=== PATIENT | male | born 1945 | race Caucasian/White ===

== ENCOUNTER 2017-02-10 09:00 | Outpatient (CLI) | payer MEDICARE, OTHER ==
[2015-04-22 11:15] VITALS: BP 142/77
[2017-02-10 09:37] LABS: BASOPHILS % 0.4 (0.0-1.5); EOSINOPHILS % 2.5 % (0.0-6.8); MEAN CORPUSCULAR HEMOGLOBIN 28.3 pg (28.0-34.0); MEAN CORPUSCULAR VOLUME 90.2 fl (80.0-100.0); MONOCYTES % 3.9 % (0.0-11.0); NEUTROPHILS # 7.6 # k/uL (1.4-7.7)
[2017-02-10 10:15] LABS: eGFR (African) > 60; eGFR (Non-African) 58
== END 2017-02-10 09:02 ==
LOC: LAB 09:00
PROVIDERS: ATTEND Family Medicine
DX: E11.9 Type 2 diabetes mellitus without complications (principal); D64.9 Anemia, unspecified; R19.5 Other fecal abnormalities; Z12.5 Encounter for screening for malignant neoplasm of prostate
CPT/HCPCS: 36415; 80053; 80061; 83036; 84443; 85025; G0103

== ENCOUNTER 2018-03-22 07:57 | Outpatient (CLI) | payer MEDICARE, OTHER ==
[2015-04-22 11:15] VITALS: BP 142/77
[2018-03-22 08:42] LABS: MEAN CORPUSCULAR HEMOGLOBIN 27.7 pg (28.0-34.0)
[2018-03-22 08:48] LABS: eGFR (Non-African) > 60
== END 2018-03-22 08:00 ==
LOC: RT 07:57
PROVIDERS: ATTEND Family Medicine
DX: I49.9 Cardiac arrhythmia, unspecified (principal); E03.9 Hypothyroidism, unspecified; E11.9 Type 2 diabetes mellitus without complications
CPT/HCPCS: 36415; 80053; 80061; 82043; 83036; 84443; 85027

== ENCOUNTER 2018-07-25 09:03 | Outpatient (CLI) | payer MEDICARE, OTHER ==
[2015-04-22 11:15] VITALS: BP 142/77
[2018-07-25 09:50] LABS: eGFR (Non-African) > 60
== END 2018-07-25 09:05 ==
LOC: LAB 09:03
PROVIDERS: ATTEND Family Medicine
DX: R60.9 Edema, unspecified (principal); E11.9 Type 2 diabetes mellitus without complications; Z79.4 Long term (current) use of insulin
CPT/HCPCS: 36415; 80048; 83036

== ENCOUNTER 2019-02-22 09:10 | Outpatient (CLI) | payer MEDICARE, OTHER ==
[2015-04-22 11:15] VITALS: BP 142/77
== END 2019-02-22 09:15 ==
LOC: LAB 09:10
PROVIDERS: ATTEND Family Medicine
DX: E11.9 Type 2 diabetes mellitus without complications (principal)
CPT/HCPCS: 36415; 83036